=== PATIENT | female | born 1955 | race Caucasian/White ===

== ENCOUNTER 2018-08-07 02:21 | Emergency (ER) | payer OTHER, SELFPAY ==
[2018-08-07 02:22] VITALS: BP 159/96; PULSE 87; RESP 20; TEMP 36.5; O2SAT 97; BMI 30.4
[2018-08-07 02:27] VITALS: BP 159/96; PULSE 87; RESP 20; TEMP 36.5; O2SAT 97
--- NOTE | 2018-08-07 02:36 | ED.DCSUM_ITS ---
- ER Visit Summary Date of Service: 08/07/18 Chief Complaint: Rash History of Present Illness: The patient is a 62 F who woke up with a itchy rash. Patient states she went to bed approximately 3 hours ago, and woke up prior to presentation with a red itchy rash all over her body. She is currently on Augme ntin for bronchitis. She is also been taking Tessalon Perles and an albuterol inhaler. Otherwise she has had no medication changes. She states that she is always told people she is allergic to amoxicillin but she does not remember where that allergy came from. She denies shortness of breath, sore throat, cough, abdominal pain, nausea vomiting or any other complaints. Physical Examination: Vital signs: afebrile, hemodynamically stable, no hypoxia on room air General: well nourished, well developed, in no distress Skin: warm, dry, patient has diffuse erythematous papular rash on the torso, upper back, upper arms, neck, blanching, no vesicles, no oropharyngeal lesions noted, no involvement of the palms or soles, no pallor HEENT: normocephalic and atraumatic; PERRL, EOMI, moist mucous membranes no oropharyngeal erythema, swelling or exudate Cardiovascular: regular rate and rhythm without murmurs, no peripheral edema, 2+ pulses all distal extremities Respiratory: No increased work of breathing, lungs are clear to auscultation bilaterally, no rales, rhonchi or wheezing Abdominal: Abdomen is soft, nontender with normoactive bowel sounds, no guarding or rebound, no masses MSK: Moves all extremities, no deformities, normal strength Neuro: Awake and alert, oriented ?4. No facial droop, sensation and motor function intact and symmetric Test Results: Medications Given Discontinued Medications Prednisone () 40 mg PO X1 ONE Stop: 08/07/18 02:33 Emergency Department Course and Treatment: Patient presents with an erythematous rash that appears consistent with a drug reaction. Patient has no findings on history or exam that are concerning for anaphylaxis. Patient was advised to stop the amoxicillin. She was started on a prednisone taper. Patient also prescribed Benadryl to use as needed for itching. At this time she has no findings that would be concerning for Mukherjee-Edwin syndrome. Patient discharged home and is to return if any worsening of her condition. Treatment Plan: [] Disposition: [] Impression: allergic dermatitis to medication This note was generated with [employer] dictation software. It may contain incorrect words, spelling, and punctuation that were not noted in review of the chart prior to signing ED Disposition - Plan for ED Patient: Disposition: Home or Assisted Living Instructions: ED Drug React Allergic Prescriptions: DiphenhydrAMINE [Benadryl] 25 mg PO Q4H PRN PRN #20 cap PRN Reason: Itching Prednisone 10 mg PO UD #33 tab Referrals: Miesha Sam MD [Primary Care Provider] - 1-2 Days if not improving Additional Instructions: You most likely are having a drug reaction to the Augmentin, especially given your prior history of allergy to amoxicillin. Stop taking it immediately. Take the Benadryl as needed for itching. Take the prednisone taper as prescribed. Follow-up with your doctor if you are not having improvement within 2 days. If you develop any shortness of breath, sensation of your throat tightening up, lightheadedness, dizziness, chest pain, severe abdominal pain, or any other concerning symptoms, return immediately to the emergency department for another evaluation.
[2018-08-07] MEDS: predniSONE 20 MG Tablet 40 MG PO (02:40)
== END 2018-08-07 03:15 | disposition home or self-care (01) ==
LOC: ED 02:48
PROVIDERS: Emergency Provider Emergency Medicine; Family Provider Internal Medicine; PCP Internal Medicine
DX: L27.1 Localized skin eruption due to drugs and medicaments taken internally (principal); T36.0X5A Adverse effect of penicillins, initial encounter; Y92.9 Unspecified place or not applicable; J40 Bronchitis, not specified as acute or chronic
CPT/HCPCS: 99283

== ENCOUNTER 2021-09-02 09:42 | Emergency (ER) | payer MEDICARE, BC, SELFPAY ==
[2021-09-02 09:44] VITALS: BP 143/81; PULSE 90; RESP 17; TEMP 36.6; O2SAT 95; BMI 30.1
[2021-09-02 10:09] VITALS: BP 143/81; PULSE 90; RESP 17; TEMP 36.6; O2SAT 95
--- NOTE | 2021-09-02 10:10 | EKG12_ITS ---
Test Reason : CP/SOB Blood Pressure : / mmHG Vent. Rate : 075 BPM Atrial Rate : 075 BPM P-R Int : 150 ms QRS Dur : 096 ms QT Int : 388 ms P-R-T Axes : 016 -14 000 degrees QTc Int : 433 ms Normal sinus rhythm Normal ECG Confirmed by MICHAEL ADAME MD ([id number]), art editor DAYNA ARTEAGA ([id number]) on 09/06/2021 1:05:39 PM Referred By: BRIANNA/CHELSEY Confirmed By:MICHAEL ADAME MD
--- NOTE | 2021-09-02 10:10 | CT_ITS ---
STUDY: CTA CHEST REASON FOR EXAM: Female, 65 years old. pulmonary embolism RADIATION DOSAGE (If Supplied By Facility): CTDIvol = ( 11.75 ) mGy, DLP = ( 461.90 ) mGycm TECHNIQUE: The examination was performed with the intravenous administration of IV 75mL Isovue-370. Post-processing of the angiographic images was performed, with multiplanar reformation and 3D reconstruction. Individualized dose optimization techniques were used for this CT. COMPARISON: None. FINDINGS: 1.3 cm right thyroid lobe nodule with mild enhancement. ACR White Paper guidelines (Roblero JK, et al. JACR 2015;12(2):143-50) suggest further evaluation with thyroid ultrasound. Normal enhancement of the main pulmonary artery and right and left pulmonary arteries. Normal enhancement of the bilateral peripheral pulmonary arteries. There is no demonstrated pulmonary embolism. Normal thoracic aorta and visualized great vessels. There is no demonstrated aortic dissection. Normal heart and pericardium. Normal mediastinum. Normal hilar regions. Normal visualized trachea and bronchi. The lungs are well expanded. There are a few scattered calcified granulomata (benign). Mild scarring or atelectasis in the right middle lobe and lingula. No airspace consolidation. Normal pleura. Normal chest wall structures. No destructive bony process. Gallstone. Small hiatal hernia. CT/CTA Chest W/WO Contrast IMPRESSION: 1. No central or segmental pulmonary embolism. 2. Right thyroid lobe nodule. Nonemergent thyroid ultrasound recommended. Electronically Signed: Fransisco Amezcua MD ([place]) at 11:13 EDT Reading Location ID and State: [place] , Service support ,
--- NOTE | 2021-09-02 10:11 | EDS_ITS ---
HPI History of Present Illness Chief Complaint: Shortness of Breath Informant: patient Narrative Narrative: 65-year-old female presenting to the emergency department with a chief complaint of chest pressure and dyspnea. She tells me that for about 6 months now she has felt fatigue a little bit off. For the past month she has been having a very slight chest pressure. She went to [place] last week to visit family and states that she was too winded to get up and move around and pretty much spent the time on the couch. This morning she states that her apple watch told her that she had low oxygen levels. She states that she visited with a heavy duty mechanic several years ago with COVID she had a leaky heart valve. No fevers or change in chronic cough. She notes as long as she is resting she feels pretty good. But with any type of exertion her symptoms return [facility] Medical History Anxiety Arthritis Asthma Home Medications albuterol sulfate 2.5 mg INHALATION Q4H PRN PRN 09/02/21 [History Last Taken Unknown] atenolol 50 mg PO DAILY 09/02/21 [History Last Taken Unknown] clonazepam 0.5 mg PO DAILY PRN PRN 09/02/21 [History Last Taken Unknown] losartan 25 mg PO DAILY 09/02/21 [History Last Taken Unknown] nortriptyline 10 mg PO QHS 09/02/21 [History Last Taken Unknown] raloxifene 60 mg PO DAILY 09/02/21 [History Last Taken Unknown] Allergy/AdvReac Type Severity Reaction Status Date / Time amoxicillin Allergy Rash Verified 09/02/21 09:43 latex Allergy Hives Verified 09/02/21 09:43 Sulfa (Sulfonamide Allergy Unknown Verified 09/02/21 09:43 Antibiotics) Surgical History Hx of appendectomy Hx of tonsillectomy Hx of tubal ligation Social History Smoking Status: Never smoker ROS ROS ED Constitutional Constitutional ED: Denies chills, fever(s) or weight loss Eyes Eyes: Denies change in vision or diplopia ENT ENT ED: Denies ear pain, rhinorrhea or sore throat Cardiovascular Cardiovascular: Reports chest pain; Denies orthopnea, palpitations or racing heartbeat Respiratory/Chest Respiratory/Chest: Reports cough and dyspnea; Denies orthopnea Gastrointestinal Gastrointestinal: Denies abdominal pain, diarrhea, nausea or vomiting Genitourinary Genitourinary ED: Denies dysuria, hematuria or urinary frequency Musculoskeletal Musculoskeletal: Denies arthralgias or myalgias Integumentary Denies abscess or rash Neurologic Neurologic: Denies headache(s) or weakness Psychiatric Psychiatric: Denies anxiety, depression, suicidal ideation or suicidal thoughts Endocrine Endocrinology: Denies polydipsia, polyphagia or polyuria Allergic/Immunologic Allergic/Immunologic ED: Denies mouth swelling, tongue swelling or urticaria EXAM Physical Exam Const Vital Signs: 09/02/21 09:44 09/02/21 10:09 09/02/21 10:41 Temperature 97.8 F 97.8 F Temperature Source Temporal Temporal Pulse Rate 90 90 Respiratory Rate 17 17 Respiratory Effort Short of Breath Respiratory Depth Normal Respiratory Pattern Normal Blood Pressure 143/81 H 143/81 H Blood Pressure Mean 101 101 Pulse Ox 95 95 Oxygen Delivery Method Room Air Room Air Room Air 09/02/21 12:03 Temperature Temperature Source Pulse Rate 67 Respiratory Rate 18 Respiratory Effort Respiratory Depth Respiratory Pattern Blood Pressure 114/71 Blood Pressure Mean 85 Pulse Ox 97 Oxygen Delivery Method Room Air Positive well nourished and well developed General Appearance ED: well developed HEENT Reports normocephalic, head/scalp atraumatic, TM's clear and moist mucous membranes Negative for trauma Tympanic Membrane ED: Yes TM's clear Eyes PERRL and EOMs intact bilaterally Neck no lymphadenopathy, supple and no JVD Resp normal respiratory effort and clear to auscultation bilaterally Cardio regular rate, regular rhythm and no murmurs GI normal to inspection, nondistended, normoactive bowel sounds and non-tender Palpation: soft Back/Spine no CVA tenderness and normal ROM Extremity normal to inspection General Extremety ED: Negative for edema General Extremity: Negative for edema Neuro oriented x3 and CN's II-XII intact bilaterally Sensorium / Orientation: alert Motor Exam: strength 5/5 throughout Psych mental status grossly normal Mood & Affect: Negative for depressed or tearful Skin no rashes or lesions noted and no wounds MDM MDM MDM Narrative Medical decision making narrative: Patient ambulates in the department without dysrhythmia or hypoxia. Basic blood work of a CBC and BMP troponin and TSH were negative. CTA of the chest was negative for PE. There was a right thyroid nodule that was noted and the patient should have a follow-up thyroid ultrasound. Lab Data Attestation: I reviewed the patient's lab results. Labs: Laboratory Results - last 24 hr 09/02/21 09/02/21 10:15 10:15 WBC 5.1 RBC 4.12 L Hgb 12.8 Hct 39.0 MCV 94.7 MCH 31.1 MCHC 32.8 RDW Std Deviation 44.5 H RDW Coeff of Ralph 12.8 Plt Count 248 MPV 11.3 Immature Gran % (Auto) 0.200 Neut % (Auto) 47.5 Lymph % (Auto) 35.2 Emmet % (Auto) 11.2 H Eos % (Auto) 5.5 H Baso % (Auto) 0.4 Absolute Neuts (auto) 2.4 Absolute Lymphs (auto) 1.79 Nucleated RBC % 0 Sodium 140 Potassium 3.7 Chloride 106 Carbon Dioxide 30.0 Anion Gap 4 L BUN 14 Creatinine 0.96 Estim Creat Clear Calc 55.30 Est GFR (MDRD) Af Amer 74 Est GFR (MDRD) Non-Af 61 BUN/Creatinine Ratio 14.6 Glucose 97 Calcium 8.6 Troponin I High Sens 5 TSH 3.31 Radiography Diagnostic Testing: Clinical Impression(s) from Imaging Studies Chest CTA 09/02/21 10:10 IMPRESSION: 1. No central or segmental pulmonary embolism. 2. Right thyroid lobe nodule. Nonemergent thyroid ultrasound recommended. Electronically Signed: Fransisco Amezcua MD ([place]) at 11:13 EDT Reading Location ID and State: [address] [place] [address] , Service support , EKG Initial EKG: Attestation: I personally reviewed and interpreted this EKG as follows: Comments: Normal sinus rhythm with a ventricular rate of 75 bpm. No concerning features of ACS Discharge Plan Triage Chief Complaint: Shortness of Breath ED Provider: Theo Jimenez Dx/Rx/DC Orders Clinical Impression: Chest pain, Acute dyspnea Instructions: ED Chest Pain, Uncertain Cause, ED Dyspnea Prescriptions: No Action albuterol sulfate 2.5 mg /3 mL (0.083 %) solution for nebulization 2.5 mg inhalation Q4H PRN PRN (Reason: sob) RF: 0 clonazepam 0.5 mg tablet 0.5 mg PO DAILY PRN PRN (Reason: Anxiety) RF: 0 nortriptyline 10 mg capsule 10 mg PO QHS RF: 0 losartan 25 mg tablet 25 mg PO DAILY RF: 0 raloxifene 60 mg tablet 60 mg PO DAILY RF: 0 atenolol 50 mg tablet 50 mg PO DAILY RF: 0 Primary Care Provider: Miesha Sam Referrals: Miesha Sam MD [Primary Care Provider] - As soon as possible (Please discuss further testing of your symptoms such as a cardiac stress echo) Disposition Disposition: Home, Self Care
[2021-09-02 10:21] LABS: Absolute Lymphocyte Count 1.79 X10^3/uL (0.83-4.51); Absolute Neutrophil Count 2.4 X10^3/uL (2.0-7.7); Basophil# 0.02 X10^3/uL; Basophil% 0.4 % (0-1); Eosinophil# 0.28 X10^3/uL; Eosinophils% 5.5 % (0-5); Hemoglobin 12.8 g/dL (12.0-15.0); Lymphocyte # 1.79 X10^3/ul (0.83-4.51); Lymphocyte % 35.2 % (19-41); Mean Corp Hgb Conc 32.8 g/dL (32-36); Mean Corpuscular Hgb 31.1 pg (27.0-32.0); Mean Corpuscular Volume 94.7 fL (81-99); Mean Platelet Vol. 11.3 fl (6.2-12.0); Monocyte# 0.57 X10^3/uL; Monocyte% 11.2 % (0-10); NRBC Flagged by Analyzer 0 % (0-5); Neutrophil # 2.41 X10^3/uL (2.7-7.7); Neutrophil % 47.5 % (47-70); Platelet Count 248 K/mm3 (150-450); RBC Distribution Width CV 12.8 % (11.6-14.6); RBC Distribution Width SD 44.5 fl (35.1-43.9); Red Blood Count 4.12 M/mm3 (4.2-5.4); White Blood Count 5.1 K/mm3 (4.4-11.0)
[2021-09-02] MEDS: Aspirin 81 MG TAB.CHEW 324 MG PO (10:39)
[2021-09-02 10:41] VITALS: O2SAT 99
[2021-09-02 10:46] LABS: Anion Gap 4 (5-15); BUN 14 mg/dL (7-18); BUN/Creat Ratio 14.6 RATIO (10-20); Calcium,Total 8.6 mg/dL (8.5-10.1); Chloride 106 mmol/L (98-107); Creatinine, Serum 0.96 mg/dL (0.55-1.02); EST Glomerular Filtration Rate 61 mL/min (>60); Est Glom Filt Rate - Afr Amer 74 mL/min (>60); Glucose 97 mg/dL (74-106); Potassium 3.7 mmol/L (3.5-5.1); Sodium Level 140 mmol/L (136-145); Thyroid Stim Hormone (TSH) 3.31 uIU/mL (0.358-3.74); Troponin-I HS (w/2H Reflex) 5 pg/mL (3.0-54.0)
[2021-09-02 11:32] VITALS: O2SAT 97
[2021-09-02 12:03] VITALS: BP 114/71; PULSE 67; RESP 18; O2SAT 97
[2021-09-02 12:16] VITALS: BP 114/71; PULSE 64; RESP 17; O2SAT 97
[2021-09-02 12:18] LABS: Reflex Troponin-HS? (from REC) Y
== END 2021-09-02 12:17 | disposition home or self-care (01) ==
PROVIDERS: Emergency Provider Emergency Medicine; PCP Internal Medicine; Visit Provider Emergency Medicine
DX: R07.9 Chest pain, unspecified (principal); R06.00 Dyspnea, unspecified; E04.1 Nontoxic single thyroid nodule; J45.909 Unspecified asthma, uncomplicated; M19.90 Unspecified osteoarthritis, unspecified site; F41.9 Anxiety disorder, unspecified; Z79.899 Other long term (current) drug therapy
CPT/HCPCS: 71275; 80048; 84443; 84484; 85025; 93005; 99284; Q9967; A4216